=== PATIENT | female | born 1930 | race African-American/Black ===

== ENCOUNTER → 2016-11-30 | Outpatient (CLI) | payer OTHER | LOC: FIMAGING 16:06 | PROVIDERS: ATTEND Family Medicine | DX: M50.31 Other cervical disc degeneration, high cervical region (principal); M46.92 Unspecified inflammatory spondylopathy, cervical region; M48.02 Spinal stenosis, cervical region ==

== ENCOUNTER → 2017-05-23 | Outpatient (CLI) | payer OTHER | LOC: FIMAGING 14:40 | PROVIDERS: ATTEND Family Medicine | DX: Z12.31 Encounter for screening mammogram for malignant neoplasm of breast (principal); Z85.3 Personal history of malignant neoplasm of breast; Z92.3 Personal history of irradiation | CPT/HCPCS: G0202 ==

== ENCOUNTER 2017-09-06 03:55 | Emergency (ER) | payer OTHER ==
[2017-09-06] MEDS ORDERED: OXYMETAZOLINE 30 ML NASAL SPRAY ONE (04:19)
[2017-09-06] MEDS ORDERED: SILVER NITRATE APPLICATOR 1 APPL TP ONE (04:19)
--- NOTE | 2017-09-06 04:37 | EDPHY ---
H & P Stated Complaint: nosebleed Time Seen by Provider: 09/06/17 04:16 HPI/ROS: Chief Complaint: Nosebleed HPI: 87-year-old woman presenting with 3 hr of bleeding from her left nostril. Patient has been having intermittent bleeding for the last week or so. Does not have a history of prior nosebleeds in the past. Does have a history of hypertension her blood pressure has been a little bit elevated. No recent falls or trauma. She takes aspirin but no other blood thinners. No headaches. No fevers or chills. No nausea or vomiting. ROS: 10 point Review of Systems is negative except as noted in the HPI. PMH: Hypertension Social History: No smoking, no alcohol, no recreational drug use Family History: non-contributory Physical Exam: Gen: Awake, Alert, No Distress HEENT: [Nose: Moderate dried blood left near, scant active bleeding Eyes: PERRLA, EOMI Mouth: Moist mucosa Ext: no edema, non-tender Skin: no rash Neuro: CN II-XII intact, Sensation grossly intact, Strength 5/5 in bilateral upper and lower extremities - Personal History Current Tetanus/Diphtheria Vaccine: Unsure Current Tetanus Diphtheria and Acellular Pertussis (TDAP): Unsure - Medical/Surgical History Hx Asthma: No Hx Chronic Respiratory Disease: No Hx Diabetes: No Hx Cardiac Disease: Yes Hx Renal Disease: No Hx Cirrhosis: No Hx Alcoholism: No Hx HIV/AIDS: No Hx Splenectomy or Spleen Trauma: No Other PMH: BREAST/COLON CANCER, hypertension, hyperlipidemia - Social History Smoking Status: Former smoker Constitutional: Initial Vital Signs Temperature (C) 36.4 C 09/06/17 03:57 Heart Rate 82 09/06/17 03:57 Respiratory Rate 16 09/06/17 03:57 Blood Pressure 200/93 H 09/06/17 03:57 O2 Sat (%) 90 L 09/06/17 03:57 Allergies/Adverse Reactions: No Known Allergies Allergy (Verified 01/14/16 01:20) Home Medications: Medication Instructions Recorded Aspirin [Aspirin 81mg (*)] 81 mg PO DAILY@08 02/14/15 Losartan/Hydrochlorothiazide 1 each PO DAILY 02/14/15 [Losartan-Hctz 100-25 mg Tab] Pravastatin Sodium 20 mg PO HS 02/14/15 Medical Decision Making Procedures: Procedure: Epistaxis control. After verbal consent was obtained, the patient was anesthetized with Derick- Synephrine. The anterior epistaxis was identified. The patient was treated with silver nitrate cautery. Following the procedure the patient was re- examined and the bleeding was well controlled. The patient tolerated the procedure well. The procedure was performed by myself. Departure - Departure Disposition: Home, Routine, Self-Care Clinical Impression: Acute anterior epistaxis Condition: Good Instructions: Nosebleed (ED) Additional Instructions: Follow up with your primary care physician in 2-3 days for recheck. If your nose begins bleed again apply the nose clamp and leave it in place for at least 30 min. If you continue to bleed after that return to the emergency department for further evaluation. Referrals: Merly Mcclellan MD [Primary Care Provider] - As per Instructions
[2017-09-06 05:04] VITALS: BP 154/87; PULSE 73; RESP 18; TEMP 97.9; O2SAT 93
== END 2017-09-06 05:05 | disposition home or self-care (01) ==
PROC: 3E09XTZ Introduction of Destructive Agent into Nose, External Approach (ICD-10-PCS; principal; 2017-09-06)
DX: R04.0 Epistaxis (principal); I10 Essential (primary) hypertension; Z85.038 Personal history of other malignant neoplasm of large intestine; Z85.3 Personal history of malignant neoplasm of breast; Z87.891 Personal history of nicotine dependence

== ENCOUNTER 2018-07-07 14:27 | Emergency (ER) | payer OTHER ==
--- NOTE | 2018-07-07 16:20 | EDPHY ---
H & P Time Seen by Provider: 07/07/18 16:20 HPI/ROS: CHIEF COMPLAINT: Abnormal labs HISTORY OF PRESENT ILLNESS: Patient had a routine visit with her primary care physician Dr. Merly Mcclellan under [id number] was called today saying her glucose is 438 her hemoglobin was almost 17 and she should come to the ER and be admitted. Patient does think she is a little bit dehydrated. No vomiting or diarrhea, no chest or abdominal pain. She has been losing some weight over the past several months. No urinary symptoms and not short of breath. REVIEW OF SYSTEMS: Eye: no change in vision ENT: no sore throat Cardiac: no chest pain or syncope Pulmonary: no cough or SOB Abdomen: no vomiting, diarrhea, abdominal pain Musculoskeletal: no back pain Skin: no rash Neuro: no headache Constitutional: no fever : no urinary symptoms A comprehensive 10 point review of systems is otherwise negative aside from elements mentioned in the history of present illness. PAST MEDICAL HISTORY: Includes breast and colon cancer, hypertension. Hyperlipidemia. Social history: Here with daughter in law, and one of her sons General Appearance: Alert and conversant, cooperative. Eyes: No scleral icterus. ENT, Mouth: Normal mucous membranes. Respiratory: Normal respiratory effort, breath sounds equal, lungs are clear to auscultation. Cardiovascular: Regular rate and rhythm. Gastrointestinal: Abdomen is soft and non tender. Neurological: Alert, face symmetric, normal motor and sensory in extremities. Skin: Warm and dry, no rashes. Musculoskeletal: No peripheral edema. Psychiatric: Not agitated. Emergency Department course/MDM: Repeat CBC and chemistry. Normal saline 500 IV. 1736: Labs reviewed include hemoglobin 11 and hematocrit 33 which is near baseline, glucose 283 with normal electrolytes otherwise. Consultation with the on-call provider for her primary care group. 1754: Discussed with Dr. Richmond who recommends starting 500mg Metformin once a day in the am. [facility] was contacted to confirm the patient is not currently on any diabetic medications. She does not appear to have ketoacidosis, she is asymptomatic, I think she is stable for outpatient management. Patient and son are in agreement with the plan. Smoking Status: Former smoker Constitutional: Initial Vital Signs Temperature (C) 36.9 C 07/07/18 14:48 Heart Rate 84 07/07/18 14:48 Respiratory Rate 18 07/07/18 14:48 Blood Pressure 106/59 L 11/09/18 14:48 O2 Sat (%) 96 07/07/18 14:48 O2 Delivery Mode Room Air Allergies/Adverse Reactions: No Known Allergies Allergy (Verified 07/07/18 14:48) Home Medications: Medication Instructions Recorded Aspirin [Aspirin 81mg (*)] 81 mg PO DAILY@08 02/14/15 Losartan/Hydrochlorothiazide 1 each PO DAILY 02/14/15 [Losartan-Hctz 100-25 mg Tab] Pravastatin Sodium 20 mg PO HS 02/14/15 metFORMIN HCL [Metformin HCl] 500 mg PO DAILY #10 tablet 07/07/18 Medical Decision Making - Data Points Laboratory Results: Laboratory Results 07/07/18 16:35 07/07/18 16:35 07/07/18 07/07/18 16:35 16:35 WBC 4.95 10^3/uL 10^3/uL (3.80-9.50) RBC 4.06 10^6/uL L 10^6/uL (4.18-5.33) Hgb 11.1 g/dL L g/dL (12.6-16.3) Hct 33.7 % L % (38.0-47.0) MCV 83.0 fL fL (81.5-99.8) MCH 27.3 pg L pg (27.9-34.1) MCHC 32.9 g/dL g/dL (32.4-36.7) RDW 15.5 % H % (11.5-15.2) Plt Count 183 10^3/uL 10^3/uL (150-400) MPV 12.4 fL H fL (8.7-11.7) Neut % (Auto) 59.0 % % (39.3-74.2) Lymph % (Auto) 28.3 % % (15.0-45.0) [place] % (Auto) 9.5 % % (4.5-13.0) Eos % (Auto) 1.8 % % (0.6-7.6) Baso % (Auto) 1.0 % % (0.3-1.7) Nucleat RBC Rel Count 0.0 % % (0.0-0.2) Absolute Neuts (auto) 2.92 10^3/uL 10^3/uL (1.70-6.50) Absolute Lymphs (auto) 1.40 10^3/uL 10^3/uL (1.00-3.00) Absolute Monos (auto) 0.47 10^3/uL 10^3/uL (0.30-0.80) Absolute Eos (auto) 0.09 10^3/uL 10^3/uL (0.03-0.40) Absolute Basos (auto) 0.05 10^3/uL 10^3/uL (0.02-0.10) Absolute Nucleated RBC 0.00 10^3/uL 10^3/uL (0-0.01) Immature Gran % 0.4 % % (0.0-1.1) Immature Gran # 0.02 10^3/uL 10^3/uL (0.00-0.10) Sodium 135 mEq/L mEq/L (135-145) Potassium 3.6 mEq/L mEq/L (3.3-5.0) Chloride 99 mEq/L mEq/L (97-110) Carbon Dioxide 27 mEq/l mEq/l (22-31) Anion Gap 9 mEq/L mEq/L (6-14) BUN 27 mg/dL H mg/dL (7-23) Creatinine 1.0 mg/dL mg/dL (0.6-1.0) Estimated GFR 53 Glucose 283 mg/dL H mg/dL (70-100) Calcium 9.6 mg/dL mg/dL (8.5-10.4) Medications Given: Discontinued Medications Sodium Chloride (Ns) 500 mls @ 0 mls/hr IV EDNOW ONE; Wide Open PRN Reason: Protocol Stop: 07/07/18 16:33 Last Admin: 07/07/18 16:41 Dose: 500 mls Metformin HCl (Glucophage) 500 mg PO EDNOW ONE Stop: 07/08/18 17:59 Last Admin: 07/07/18 18:46 Dose: 500 mg Departure - Departure Disposition: Home, Routine, Self-Care Clinical Impression: Hyperglycemia Condition: Good Instructions: Diabetic Hyperglycemia (ED) Referrals: Merly Mcclellan MD [Primary Care Provider] - As per Instructions (followup next week. Your hemoglobin was 11, which is similar to previous. Your blood sugar was 283; Dr. Richmond director [employer] for [employer] recommended starting metformin 500mg once by mouth in the AM.) Prescriptions: metFORMIN HCL [Metformin HCl] 500 mg PO DAILY #10 tablet
[2018-07-07] MEDS ORDERED: NS 500 ML IV ONE (16:32)
[2018-07-07 16:56] LABS: PLATELET COUNT 183 10^3/uL (150-400)
[2018-07-07 18:50] VITALS: BP 112/75
[2018-07-08] MEDS ORDERED: metFORMIN HCL 500 MG TAB PO ONE (17:58)
== END 2018-07-07 18:50 | disposition home or self-care (01) ==
DX: R73.9 Hyperglycemia, unspecified (principal); I10 Essential (primary) hypertension; E78.5 Hyperlipidemia, unspecified; E86.9 Volume depletion, unspecified